=== PATIENT | female | born 1980 | race Caucasian/White ===

== ENCOUNTER 2020-04-15 18:34 | Emergency (ER) | payer OTHER, BC ==
--- NOTE | 2020-04-15 19:48 | EDM.PDOC ---
ED HPI GENERAL MEDICAL PROBLEM - General Chief Complaint: Lower Extremity Injury/Pain Stated Complaint: LT KNEE INJURY Time Seen by Provider: 04/15/20 19:33 Source of Information: Reports: Patient, Significant Other (Boyfriend) History Limitations: Reports: No Limitations - History of Present Illness INITIAL COMMENTS - FREE TEXT/NARRATIVE: Mrs. Sanchez is a 40-year-old woman who now presents to the ED with left knee pain. 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 She abraded both of her hands, but states that they are mild, and do not need to be evaluated. She placed Band-Aids on her hands. She states that she did not initially have left knee pain, but about an hour later, after the adrenaline had worn off, she developed progressively worsening anterolateral left knee pain. She states that she is no longer able to bear weight due to the pain. She states that she has been applying ice to the knee, but has not taken any pain medications. No prior left knee injury. Here in the ED, the patient's initial BP is found to be elevated at 193/103, otherwise, she is hemodynamically stable, afebrile, saturating 98% on room air. Other than today's injuries, the patient denies having a recent fever, chills, sore throat, ear pain, nasal or sinus congestion, cough, dyspnea, chest pain, palpitations, nausea, vomiting, constipation, diarrhea, abdominal pain, urinary symptoms, recent weight gain or weight loss, recent bloody bowel movements or black bowel movements, recent joint aches, headaches, or rashes. The patient does not have a PCP. Her woman's health provider is Kelly Crawford NP. She states that she has already received an influenza vaccine this season. Left Knee Pain Score (Numeric/FACES): 8 - Related Data Allergies Allergy/AdvReac Type Severity Reaction Status Date / Time amoxicillin [From Augmentin] Allergy Hives Verified 04/15/20 19:06 clarithromycin [From Biaxin] Allergy Hives Verified 04/15/20 19:06 clavulanic acid Allergy Hives Verified 04/15/20 19:06 [From Augmentin] ibuprofen [From Advil] Allergy Swelling Verified 04/15/20 19:06 Past Medical History Psychiatric History: Reports: Anxiety, Depression Endocrine/Metabolic History: Reports: Obesity/BMI 30+ - Infectious Disease History Infectious Disease History: Reports: Chicken Pox - Past Surgical History HEENT Surgical History: Reports: Oral Surgery (dental extractions), Tonsillectomy GI Surgical History: Reports: Cholecystectomy (around 1999) Social & Family History - Tobacco Use Tobacco Use Status *Q: Current Every Day Tobacco User Tobacco Use Within Last Twelve Months: Vaping (Nicotine) Years of Tobacco use: 25 Packs/Tins Daily: 0.2 Packs/Tins Daily Comment: Down from 1 ppd Tobacco Use Comment: since 15 yrs old - Caffeine Use Caffeine Use: Reports: Energy Drinks - Alcohol Use Alcohol Use History: Yes Alcohol Use Frequency: Rarely - Recreational Drug Use Recreational Drug Use: Yes Drug Use in Last 12 Months: No Recreational Drug Type: Reports: Marijuana/Hashish (last smoked when 27 yrs old) - Living Situation & Occupation Living situation: Reports: (), with Family 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 ED EXAM, GENERAL - Physical Exam Exam: See Below Exam Limited By: No Limitations General Appearance: Alert, WD/WN, No Apparent Distress Extremities: Other (No visible abnormality to the left knee, when compared to the right, such as swelling, erythema, ecchymosis, or abrasion. Clinically, no joint effusion present. The patient reports pain along the anterolateral aspect of the knee, although she denies tenderness to palpation of that area. She does report, however, pain to PROM of the knee. Neurovascular status of the left lower extremity is intact.) Course - Vital Signs Last Recorded V/S: Last Vital Signs Temp 36.2 C 04/15/20 19:03 Pulse 93 04/15/20 19:03 Resp 18 04/15/20 19:03 BP 193/103 H 04/15/20 19:03 Pulse Ox 98 04/15/20 19:03 - Orders/Labs/Meds Orders: Active Orders 24 hr Category Date Time Status Knee Min 4V Lt [CR] Stat Exams 04/15/20 19:08 Taken DME for Discharge [COMM] Routine Oth 02/20/21 21:21 Ordered DME for Discharge [COMM] Stat Oth 04/15/20 20:37 Ordered Labs: Laboratory Tests 04/15/20 Range/Units 19:37 Urine HCG, Qual Negative (NEGATIVE) Meds: Medications Discontinued Medications Generic Name Dose Route Start Last Admin Trade Name Aaron PRN Reason Stop Dose Admin Acetaminophen 650 mg 04/15/20 21:31 04/15/20 21:42 Tylenol PO 04/15/20 21:32 650 mg NOW ONE Administration Hydrocodone Bitart/Acetaminophen 2 tab 04/15/20 20:35 04/15/20 21:42 [place] 325-5 Mg PO 04/15/20 20:36 Not Given ONETIME ONE - Re-Assessments/Exams Free Text/Narrative Re-Assessment/Exam: 04/15/20 19:46 As above, the patient slipped on snow this afternoon, landing on her left knee. She now has pain with bearing weight. There are no visible abnormalities to the knee, such as swelling, erythema, ecchymosis, or abrasion, and while the patient does not really have tenderness to palpation of the knee, she does have pain to PROM. X-rays of the knee were ordered at triage, but have not yet been taken. The patient declined an offer for pain medication. 04/15/20 20:36 4-view radiographs of the left knee appear to demonstrate a small opacity off the superior aspect of the medial condyle, suggesting an avulsion, however, that is not the area of the patient's pain. The remainder of the knee appears to be grossly normal, with no suggestion of a fracture or dislocation. Formal read per the Radiologist pending. Notified that the patient would like something for pain, therefore I ordered 2 tablets of [place]. Based on the above, the patient may have a ligamentous injury, therefore I will have the nurse place a knee immobilizer. 04/15/20 20:41 X-ray results discussed with the patient and her boyfriend. I will have her follow-up with Dr. Melendrez this week. I will provide her a note for work. 04/15/20 21:33 Notified that the patient desired crutches. My colleague ordered them for her. Also notified that the patient does not want to take [place], as it causes nausea, and did not want to take ibuprofen, as it upsets her stomach, therefore I ordered Tylenol. Departure - Departure Time of Disposition: 20:42 Disposition: Home, Self-Care 01 Condition: Good Clinical Impression: Internal derangement of left knee - Discharge Information *PRESCRIPTION DRUG MONITORING PROGRAM REVIEWED*: Not Applicable *COPY OF PRESCRIPTION DRUG MONITORING REPORT IN PATIENT EL: Not Applicable Referrals: Kelly Crawford NP [Primary Care Provider] - Josh Melendrez MD [Physician] - Forms: ED Department Discharge, ED Return to Work/School Form Additional Instructions: You were seen in the emergency room after slipping on snow and falling onto your left knee this afternoon. Work-up in the ER included x-rays of your left knee, which found no broken bones or dislocations. Based on your history, physical exam, and ER x-rays, you most likely have an internal derangement of your left knee, indicating an injured tendon or ligament. For this reason, you have been placed into a knee immobilizer. Apply the knee immobilizer over your pants in the morning, and remove it at bedtime. Be very careful going up and down stairs, since he will not be able to bend your left knee. We recommend that you take [id number] acetaminophen (Tylenol), 650 mg every 4 to 6 hours, as needed for discomfort. We recommend that you elevate your left leg and apply an ice pack to the knee area, right over the knee immobilizer, for the next 2 to 3 days, to help minimize swelling. Please follow-up with the Orthopedic Surgeon Dr. Josh Melendrez. Call his office Friday to make an appointment. If any other problems, please do not hesitate to return to the ER. Sepsis Event Note (ED) - Evaluation Sepsis Screening Result: No Definite Risk - Focused Exam Vital Signs: Vital Signs Temp Pulse Resp BP Pulse Ox 04/15/20 19:03 36.2 C 93 18 193/103 H 98 - My Orders Last 24 Hours: My Active Orders 04/15/20 20:37 DME for Discharge [COMM] Stat - Assessment/Plan Last 24 Hours: My Active Orders 04/15/20 20:37 DME for Discharge [COMM] Stat
[2020-04-15] MEDS ORDERED: Acetaminophen/HYDROcodone 325-5 MG Tab PO ONE (20:35)
[2020-04-15] MEDS ORDERED: Acetaminophen 325 MG Tab PO ONE (21:31)
--- NOTE | 2020-04-16 11:32 | CR ---
Left knee: 4 views of the left knee were obtained. Comparison: No prior knee exam is available. Small bony density is seen off the superior medial epicondyle of the femur compatible with old injury. No joint effusion is seen. Medial joint is minimally narrowed as compared to the lateral joint. No additional abnormality is appreciated. Impression: 1. Slight medial joint space narrowing. 2. Small bony density off the upper medial femoral epicondyle compatible with old injury. Diagnostic code #2
== END 2020-04-15 21:45 | disposition home or self-care (01) ==
LOC: JD.ED 18:34
DX: M23.92 Unspecified internal derangement of left knee (principal); S89.92XA Unspecified injury of left lower leg, initial encounter; Z72.0 Tobacco use; Z88.0 Allergy status to penicillin; Z88.1 Allergy status to other antibiotic agents; Z88.6 Allergy status to analgesic agent; W00.0XXA Fall on same level due to ice and snow, initial encounter
CPT/HCPCS: 73564; 81025; 99283; A9270

== ENCOUNTER 2020-07-15 23:32 | Emergency (ER) | payer BC, OTHER ==
[2020-07-16] MEDS ORDERED: Sodium Chloride 0.9% 10 ML Syringe FLUSH PRN (00:08)
--- NOTE | 2020-07-16 00:09 | EDM.PDOC ---
ED HPI GENERAL MEDICAL PROBLEM - General Chief Complaint: Cardiovascular Problem Stated Complaint: BP OVER 200 CHEST PAINS Time Seen by Provider: 07/16/20 00:07 Source of Information: Reports: Patient History Limitations: Reports: No Limitations - History of Present Illness INITIAL COMMENTS - FREE TEXT/NARRATIVE: 40-year-old female presents to the ED with a markedly elevated blood pressure. It was assessed due to persistence of a diffuse temporal headache. She is under a great deal of stress at this point time going through divorce etc. She is not sleeping very well either. She reports no history of hypertension during which was 12 years ago. No preeclampsia or eclampsia. She is been told that her blood pressure has been high in the clinic usually in the 150s on the systolic side and 85 diastolically. At the time of presentation today it is markedly elevated at 222 over 115. Current medications include citalopram 40 mg daily and lorazepam 0.5 to 1 mg 3 times daily as needed. She is also on Cryselle 28 control pill which may not be the wisest thing to be on with hypertension. Onset: Today, Other (Elevated blood pressure markedly elevated today. She believes is probably been elevated for the last week or more due to the stress he is under.) Duration: Day(s):, Getting Worse Location: Reports: Generalized (Elevated high blood pressure.), Other (Bitemporal headache.) Quality: Reports: Ache (Headache) Severity: Moderate (bitemporal) Improves with: Reports: None Worsens with: Reports: None Context: Denies: Activity, Exercise, Lifting, Sick Contact, Trauma, Other Associated Symptoms: Denies: No Other Symptoms, Confusion, Chest Pain, Cough, cough w sputum, Diaphoresis, Fever/Chills, Headaches, Loss of Appetite, Malaise, Nausea/Vomiting, Seizure, Shortness of Breath, Syncope, Weakness Treatments MOLD CHIPPER: Reports: Acetaminophen, NSAIDS (Motrin as needed) - Related Data Allergies Allergy/AdvReac Type Severity Reaction Status Date / Time amoxicillin [From Augmentin] Allergy Severe Hives Verified 07/15/20 23:43 clarithromycin [From Biaxin] Allergy Severe Hives Verified 07/15/20 23:43 clavulanic acid Allergy Severe Hives Verified 07/15/20 23:43 [From Augmentin] ibuprofen [From Advil] Allergy Severe Swelling Verified 05/22/21 23:43 Home Meds: Home Meds Citalopram Hydrobromide [Celexa] 40 mg PO DAILY 07/15/20 [History] LORazepam [Ativan] 0.5 - 1 mg PO DAILY PRN 07/15/20 [History] norgestrel-ethinyl estradioL [Cryselle-28 Tablet] 1 tab PO DAILY 07/15/20 [History] Valsartan 320 mg PO DAILY #30 tablet 07/16/20 [Rx] Past Medical History Psychiatric History: Reports: Anxiety, Depression Endocrine/Metabolic History: Reports: Obesity/BMI 30+ - Infectious Disease History Infectious Disease History: Reports: Chicken Pox - Past Surgical History HEENT Surgical History: Reports: Oral Surgery, Tonsillectomy GI Surgical History: Reports: Cholecystectomy Social & Family History - Tobacco Use Tobacco Use Status *Q: Current Every Day Tobacco User Years of Tobacco use: 2 Packs/Tins Daily: 0.4 - Caffeine Use Caffeine Use: Reports: Coffee, Energy Drinks - Recreational Drug Use Recreational Drug Use: No - Living Situation & Occupation Living situation: Reports: (--currently going through a divorce at this time), with Family 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 Denies: Fever, Chills, Weight Loss HEENT: Reports: No Symptoms Respiratory: Reports: No Symptoms Cardiovascular: Reports: Blood Pressure Problem (Has been told her blood p ressure has been in the 150s on several visits to the doctor in the past year or 2. She is never been placed on medication for hypertension.) Endocrine: Reports: Fatigue GI/Abdominal: Reports: No Symptoms : Reports: No Symptoms Musculoskeletal: Reports: No Symptoms Skin: Reports: No Symptoms Neurological: Reports: Dizziness, Headache Psychiatric: Reports: Anxiety, Other (Insomnia) Hematologic/Lymphatic: Reports: No Symptoms Immunologic: Reports: No Symptoms ED EXAM, GENERAL - Physical Exam Exam: See Below Exam Limited By: No Limitations General Appearance: Alert, WD/WN, No Apparent Distress, Other (Temperature is 35.9 degrees. Heart rate was 77 and sinus respiratory is 18 with O2 sats of 100% room air. BP 222/115 initially. This Did come down to 180/110. This was over a period of 40 minutes.) Eye Exam: Bilateral Eye: A-V [place] (Mild bilaterally), Normal Inspection (No scleral icterus or blepharal pallor.), Periorbital Changes Head: Atraumatic, Normocephalic Neck: Normal Inspection, Supple, Non-Tender, Full Range of Motion. No: Carotid Bruit, Lymphadenopathy (L), Lymphadenopathy (R) Respiratory/Chest: No Respiratory Distress, Lungs Clear, Normal Breath Sounds, No Accessory Muscle Use Cardiovascular: Normal Peripheral Pulses, Regular Rate, Rhythm, No Edema, No Gallop, No Murmur, No Rub Peripheral Pulses: 2+: Posterior Tibial (L), Posterior Tibial (R), Dorsalis Pedis (L), Dorsalis Pedis (R), 3+: Carotid (L), Carotid (R) GI/Abdominal: Normal Bowel Sounds, Soft, Non-Tender, No Organomegaly, No Abnormal Bruit, No Mass, Pelvis Stable Back Exam: Normal Inspection, Full Range of Motion. No: CVA Tenderness (L), CVA Tenderness (R) Extremities: Normal Inspection, Normal Range of Motion, Non-Tender, No Pedal Edema Neurological: Alert, Oriented, CN II-XII Intact, Normal Cognition Psychiatric: Normal Affect, Normal Mood Skin Exam: Warm, Intact, Normal Color, No Rash #1 Interpretation EKG Date: 07/16/20 Time: 00:08 Rhythm: NSR Rate (Beats/Min): 72 [place]: LAD-Left [place] Deviation (-32 degrees) P-Wave: Present QRS: Other (Poor R wave progression throughout with delayed transition. Tall R wave in lead I is suggestive of left ventricular hypertrophy pattern.) ST-T: Normal QT: Prolonged (Minimally prolonged) EKG Interpretation Comments: Abnormal ECG Course - Vital Signs Last Recorded V/S: Last Vital Signs Temp 35.9 C L 07/15/20 23:40 Pulse 77 07/15/20 23:40 Resp 18 07/15/20 23:40 BP 162/105 H 07/16/20 01:21 Pulse Ox 100 07/15/20 23:40 - Orders/Labs/Meds Orders: Active Orders 24 hr Category Date Time Status EKG Documentation Completion [RC] ASDIRECTED Care 07/16/20 00:03 Active Peripheral IV Care [RC] . DIRECTED Care 07/16/20 00:09 Active Chest 1V Frontal [CR] Stat Exams 07/16/20 00:03 Taken Sodium Chloride 0.9% [Saline Flush] Med 07/16/20 00:08 Active 10 ml FLUSH ASDIRECTED PRN Peripheral IV Insertion Adult [OM.PC] Stat Oth 07/16/20 00:09 Ordered EKG 12 Lead [EK] Stat Ther 07/16/20 00:03 Ordered Medication Orders Sodium Chloride (Sodium Chloride 0.9% 10 Ml Syringe) 10 ml FLUSH ASDIRECTED PRN PRN Reason: Keep Vein Open Last Admin: 07/16/20 01:13 Dose: 10 ml Documented by: JERROD Labs: Laboratory Tests 07/16/20 07/16/20 07/16/20 Range/Units 00:15 00:15 01:00 WBC 9.58 (3.98-10.04) K/mm3 RBC 4.76 (3.98-5.22) M/mm3 Hgb 13.6 (11.2-15.7) gm/dl Hct 41.5 (34.1-44.9) % MCV 87.2 (79.4-94.8) fl MCH 28.6 (25.6-32.2) pg MCHC 32.8 (32.2-35.5) g/dl RDW Std Deviation 41.4 (36.4-46.3) fL Plt Count 302 (182-369) K/mm3 MPV 9.2 L (9.4-12.3) fl Neut % (Auto) 57.4 (34.0-71.1) % Lymph % (Auto) 35.0 (19.3-51.7) % [place] % (Auto) 6.3 (4.7-12.5) % Eos % (Auto) 0.8 (0.7-5.8) Baso % (Auto) 0.3 (0.1-1.2) % Neut # (Auto) 5.50 (1.56-6.13) K/mm3 Lymph # (Auto) 3.35 (1.18-3.74) K/mm3 [place] # (Auto) 0.60 H (0.24-0.36) K/mm3 Eos # (Auto) 0.08 (0.04-0.36) K/mm3 Baso # (Auto) 0.03 (0.01-0.08) K/mm3 Sodium 140 (136-145) mEq/L Potassium 3.6 (3.5-5.1) mEq/L Chloride 101 (98-107) mEq/L Carbon Dioxide 24 (21-32) mEq/L Anion Gap 18.6 H (5-15) BUN 12 (7-18) mg/dL Creatinine 0.7 (0.55-1.02) mg/dL Est Cr Clr Drug Dosing TNP Estimated GFR (MDRD) > 60 (>60) mL/min BUN/Creatinine Ratio 17.1 (14-18) Glucose 98 (70-99) mg/dL Calcium 8.7 (8.5-10.1) mg/dL Magnesium 1.9 (1.8-2.4) mg/dL Total Bilirubin 0.2 (0.2-1.0) mg/dL AST 15 (15-37) U/L ALT 26 (14-59) U/L Alkaline Phosphatase 67 (46-116) U/L Troponin I < 0.017 (0.00-0.056) ng/mL Total Protein 7.4 (6.4-8.2) g/dl Albumin 3.6 (3.4-5.0) g/dl Globulin 3.8 gm/dL Albumin/Globulin Ratio 1.0 (1-2) Urine Color Yellow (Yellow) Urine Appearance Clear (Clear) Urine pH 7.0 (5.0-8.0) Ur Specific [place] 1.020 (1.005-1.030) Urine Protein Negative (Negative) Urine Glucose (UA) Negative (Negative) Urine Ketones Negative (Negative) Urine Occult Blood 2+ H (Negative) Urine Nitrite Negative (Negative) Urine Bilirubin Negative (Negative) Urine Urobilinogen 0.2 (0.2-1.0) Ur Leukocyte Esterase Negative (Negative) Urine RBC 5-10 H (0-5) /hpf Urine WBC 0-5 (0-5) /hpf Ur Squamous Epith Cells 0-5 (0-5) /hpf Urine Bacteria Rare (FEW) /hpf Urine Mucus Not seen (FEW) /hpf Meds: Medications Generic Name Dose Route Start Last Admin Trade Name Freq PRN Reason Stop Dose Admin Sodium Chloride 10 ml 07/16/20 00:08 07/16/20 01:13 Sodium Chloride 0.9% 10 Ml Syringe FLUSH 10 ml ASDIRECTED PRN Administration Keep Vein Open Discontinued Medications Generic Name Dose Route Start Last Admin Trade Name Aaron PRN Reason Stop Dose Admin Amlodipine Besylate 10 mg 07/16/20 00:34 07/16/20 01:14 Amlodipine 10 Mg Tab PO 07/16/20 00:35 10 mg ONETIME ONE Administration Hydralazine HCl 10 mg 07/16/20 01:54 07/16/20 01:59 Hydralazine 20 Mg/Ml Sdv IVPUSH 07/16/20 01:55 10 mg ONETIME ONE Administration Labetalol HCl 20 mg 07/16/20 00:30 07/16/20 01:12 Labetalol 100 Mg/20 Ml Mdv IVPUSH 07/16/20 00:31 20 mg ONETIME ONE Administration Protocol Losartan Potassium 100 mg 07/16/20 00:31 07/16/20 01:13 Losartan 100 Mg Tab PO 07/16/20 00:32 100 mg ONETIME ONE Administration - Radiology Interpretation Free Text/Narrative:: 40-year-old female presents to the ED with markedly elevated blood pressure. She has been told that she has mild systolic hypertension in the past visits to the doctor with usually it being around 150. Diastolics have usually been around 85. Due to persistent headache in bitemporal area of her head she had blood pressure checked today and found it to be markedly elevated. It is 222/115 at the initial visit to the ED. It did come down over period of 45 minutes of observation to 180/110. Her ECGs suggest left ventricular hypertrophy pattern. The chest leads show poor progression of the ST segment with early R wave transition in V2 suggestive of possible septal hypertrophy pattern. Decision made to treat this lady with intravenous medication Lopressor 20 mg IV. I am also going to give her oral amlodipine 5 mg by mouth and Cozaar 100 mg by mouth since we do not have valsartan in our formulary. Routine labs to be collected - Re-Assessments/Exams Free Text/Narrative Re-Assessment/Exam: 07/16/20 01:00: White count is 9.58 with differential of 57.4% neutrophils on the auto differential. Hemoglobin is 13.6 with hematocrit of 41.5 platelet count 302,000. Sodium is 140 with a potassium of 3.6. Chloride 101 with a bicarb of 24. Anion gap is elevated at 18.6. BUN is 12 with a creatinine of 0.7 and a GFR greater than 60 normal. Glucose is 98 calcium is 8.7 magnesium is 1.9 liver function is normal troponin I is less than 0.017. Total protein 7.4 with an albumin fraction of 3.6. Urinalysis shows 2+ occult blood negative protein urea no signs of infection 07/16/20 01:28 nurses had difficulty establishing an IV and therefore she has just received medication intravenously within the last 10 minutes. 07/16/20 01:55 blood pressure remains elevated 170/104. I am therefore going to give her hydralazine 10 mg IV. Heart rate is 70 and sinus. O2 sats are 98% on room air 07/16/20 02:20 blood pressure is come down to 169/91 15 minutes after receiving hydralazine 10 mg IV. Patient will be discharged to home. The plan will be to start her on valsartan 320 mg once daily and every morning. She will build up her prescription up at noon today from [facility] and should take her first tablet today. She is to follow-up with her primary care provider within the next 2 to 3 weeks time for blood pressure review and I suggested picking up a blood pressure monitoring machine for herself at home. Departure - Departure Time of Disposition: 02:21 Disposition: Home, Self-Care 01 Reason for Transfer *Q: Other Condition: Fair Clinical Impression: Essential hypertension Prescriptions: Valsartan 320 mg PO DAILY #30 tablet Referrals: Kelly Crawford MEDICAL SERVICES ASSISTANT [Primary Care Provider] - Forms: ED Department Discharge Additional Instructions: Evaluation in the emergency room tonight in regards to markedly elevated blood pressure. You recognize that you were under good deal of duress and stress in regards to divorce at this time. Blood pressure initially was 222/115 and was difficult to bring under control even with medication Lopressor 20 mg given intravenously. He also received oral medications Cozaar 100 mg and amlodipine 5 mg which will take at few hours to start to kick in but will start to lower blood pressure over the next 6 to 8 hours. 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 The only drugstore open today is [facility] pharmacy across from [facility]. It is open from 12 to 4 PM on Friday. Take valsartan 320 mg once daily in the morning and then I would suggest purchasing a blood pressure cuff or monitor for home use so you can check on your blood pressure intermittently. Valsartan will work on a daily basis and slowly bring blood pressure under control over period of a month and sometimes even up to 2 months. Follow-up with personal care physician for refill. Sepsis Event Note (ED) - Evaluation Sepsis Screening Result: No Definite Risk - Focused Exam Vital Signs: Vital Signs Temp Pulse Resp BP BP Pulse Ox 07/16/20 01:21 162/105 H 07/16/20 01:14 194/118 H 07/16/20 01:13 194/118 H 07/15/20 23:40 35.9 C L 77 18 222/115 H 100 - My Orders Last 24 Hours: My Active Orders 07/16/20 00:03 EKG Documentation Completion [RC] ASDIRECTED Chest 1V Frontal [CR] Stat EKG 12 Lead [EK] Stat 07/16/20 00:08 Sodium Chloride 0.9% [Saline Flush] 10 ml FLUSH ASDIRECTED PRN 07/16/20 00:09 Peripheral IV Care [RC] . DIRECTED Peripheral IV Insertion Adult [OM.PC] Stat - Assessment/Plan Last 24 Hours: My Active Orders 07/16/20 00:03 EKG Documentation Completion [RC] ASDIRECTED Chest 1V Frontal [CR] Stat EKG 12 Lead [EK] Stat 07/16/20 00:08 Sodium Chloride 0.9% [Saline Flush] 10 ml FLUSH ASDIRECTED PRN 07/16/20 00:09 Peripheral IV Care [RC] . DIRECTED Peripheral IV Insertion Adult [OM.PC] Stat
[2020-07-16] MEDS ORDERED: Labetalol 100 MG/20 ML MDV IVPUSH ONE (00:30)
[2020-07-16] MEDS ORDERED: Losartan 100 MG Tab PO ONE (00:31)
[2020-07-16] MEDS ORDERED: amLODIPine 10 MG Tab PO ONE (00:34)
[2020-07-16] MEDS ORDERED: hydrALAZINE 20 MG/ML SDV IVPUSH ONE (01:54)
--- NOTE | 2020-07-17 13:07 | CR ---
Chest: Portable view of the chest was obtained. Comparison: No prior chest imaging is available. Heart size and mediastinum are within normal limits. Lungs are clear with no acute parenchymal change. No pneumothorax is seen. No acute osseous abnormality is appreciated. Impression: 1. Nothing acute is appreciated on portable chest x-ray. Diagnostic code #1
== END 2020-07-16 02:25 | disposition home or self-care (01) ==
LOC: JD.ED 23:32
DX: I10 Essential (primary) hypertension (principal); E66.9 Obesity, unspecified; Z72.0 Tobacco use; Z88.0 Allergy status to penicillin; Z88.8 Allergy status to other drugs, medicaments and biological substances; Z68.30 Body mass index [BMI] 30.0-30.9, adult
CPT/HCPCS: 36415; 71045; 80053; 81001; 83735; 84484; 85025; 93005; 96374; 96375; 99284; A9270; J0360; J3490; 93010

== ENCOUNTER 2021-09-03 18:13 | Emergency (ER) | payer BC ==
[2021-09-03] MEDS ORDERED: Lactated Ringers 1,000 ML IV ONE (20:03)
[2021-09-03] MEDS ORDERED: Ondansetron 4 MG/2 ML SDV IVPUSH ONE (20:03)
[2021-09-03] MEDS ORDERED: diphenhydrAMINE 50 MG/ML SDV IVPUSH ONE (20:06)
[2021-09-03] MEDS ORDERED: LORazepam 2 MG/ML SDV IVPUSH ONE (22:18)
[2021-09-03] MEDS ORDERED: Metoclopramide 10 MG/2 ML SDV IVPUSH ONE (22:18)
== END 2021-09-03 23:55 | disposition home or self-care (01) ==
LOC: JD.ED 18:13
DX: H81.10 Benign paroxysmal vertigo, unspecified ear (principal); E66.9 Obesity, unspecified; Z68.41 Body mass index [BMI] 40.0-44.9, adult; Z88.0 Allergy status to penicillin; Z88.8 Allergy status to other drugs, medicaments and biological substances; Z28.310 Unvaccinated for COVID-19
CPT/HCPCS: 36415; 80053; 84484; 85025; 93005; 96361; 96374; 96375; 99283; J1200; J2060; J2405; J2765; J7120

== ENCOUNTER 2023-12-04 11:02 | Inpatient (IN) | payer OTHER ==
[2023-12-04 11:43] LABS: BASOPHILS PERCENT AUTO 0.3 % (0.0-1.0); EOSINOPHILS ABSOLUTE AUTO 0.1 K/mm3 (0.0-0.4); EOSINOPHILS PERCENT AUTO 0.6 % (0.0-6.0); HEMATOCRIT 47.8 % (37.0-47.0); HEMOGLOBIN 16.2 gm/dl (12.0-16.0); IMMATURE GRAN ABSOLUTE AUTO 0.07 K/mm3 (0.00-0.05); IMMATURE GRAN PERCENT AUTO 0.7 % (0.0-0.4); LYMPHOCYTES ABSOLUTE AUTO 1.7 K/mm3 (1.0-4.8); LYMPHOCYTES PERCENT AUTO 17.6 % (24.0-44.0); MEAN CORPUSCULAR HEMOGLOBIN 29.1 pg (28.0-32.0); MEAN CORPUSCULAR HGB CONC 33.9 g/dl (32.0-36.0); MEAN PLATELET VOLUME 8.7 fl (9.4-12.3); MONOCYTES ABSOLUTE AUTO 1.3 K/mm3 (0.0-0.8); MONOCYTES PERCENT AUTO 13.1 % (0.0-8.0); NEUTROPHILS ABSOLUTE AUTO 6.5 K/mm3 (1.8-7.7); NEUTROPHILS PERCENT AUTO 67.7 % (41.0-71.0); PLATELET COUNT,PLT 418 K/mm3 (150-400); RED BLOOD CELL COUNT 5.56 M/mm3 (4.10-5.30); WHITE BLOOD CELL COUNT,WBC 9.56 K/mm3 (3.9-11.3)
[2023-12-04] MEDS: Sodium Chloride 0.9% 1,000 ML IV ONE (11:53)
[2023-12-04] MEDS: Sodium Chloride 0.9% 10 ML Syringe FLUSH PRN (12:10)
[2023-12-04] MEDS: Iopamidol 612 MG/ML 100 ML Bottle IVPUSH ONE (12:11)
[2023-12-04 12:13] LABS: A/G RATIO 1.1 (1-2); ALANINE AMINOTRANSFERASE,ALT 123 U/L (14-59); ALBUMIN 4.1 g/dl (3.4-5.0); ALKALINE PHOSPHATASE 285 U/L (46-116); ANION GAP 23.5 (5-15); ASPARTATE AMNIOTRANSFERASE,AST 184 U/L (15-37); BILIRUBIN TOTAL 2.1 mg/dL (0.2-1.0); BLOOD UREA NITROGEN,BUN 33 mg/dL (7-18); CALCIUM 9.1 mg/dL (8.5-10.1); CARBON DIOXIDE,CO2 19 mEq/L (21-32); CHLORIDE,CL 97 mEq/L (98-107); CREATININE 4.1 mg/dL (0.55-1.02); ESTIMATED GFR 13 mL/min (>60); GLUCOSE RANDOM 142 mg/dL (70-99); POTASSIUM,K 3.5 mEq/L (3.5-5.1); PROTEIN TOTAL,TP 7.9 g/dl (6.4-8.2); SODIUM,NA 136 mEq/L (136-145)
[2023-12-04 12:29] LABS: C-REACTIVE PROTEIN 1.87 mg/dL (<0.30)
[2023-12-04] MEDS: Lactated Ringers 1,000 ML IV ONE ×2 (13:11→14:32)
[2023-12-04 14:11] LABS: APPEARANCE,URINE SLT CLOUDY (Clear); BILIRUBIN,URINE 2+ (Negative); COLOR,URINE DARK YELLOW (Yellow); GLUCOSE,URINE NEGATIVE (Negative); KETONES,URINE TRACE (Negative); LEUKOCYTE ESTERASE,URINE NEGATIVE (Negative); NITRITE,URINE NEGATIVE (Negative); OCCULT BLOOD,URINE 1+ (Negative); PH,URINE 5.5 (5.0-8.0); PROTEIN,URINE 2+ (Negative); UROBILINOGEN,URINE 0.2 (0.2-1.0)
[2023-12-04 14:27] LABS: BACTERIA,URINE MODERATE /hpf (FEW); MUCUS,URINE MODERATE /hpf (FEW)
[2023-12-04] MEDS ORDERED: Acetaminophen 325 MG Tab PO PRN (14:37)
[2023-12-04] MEDS ORDERED: oxyCODONE 5 MG Tab PO PRN (14:37)
[2023-12-04] MEDS ORDERED: Morphine 2 MG/ML SYRINGE IVPUSH PRN (14:37)
[2023-12-04] MEDS: Loperamide 2 MG Cap PO PRN (21:01)
[2023-12-04] MEDS: Ondansetron 4 MG/2 ML SDV IV PRN (21:05)
[2023-12-05] MEDS: Aluminum Hydroxide/Magnesium Hydroxide/Simethicone Susp 30 ML Cup PO PRN (01:20)
[2023-12-05 05:40] LABS: BASOPHILS PERCENT AUTO 0.5 % (0.0-1.0); EOSINOPHILS ABSOLUTE AUTO 0.1 K/mm3 (0.0-0.4); EOSINOPHILS PERCENT AUTO 1.2 % (0.0-6.0); HEMATOCRIT 37.2 % (37.0-47.0); HEMOGLOBIN 12.7 gm/dl (12.0-16.0); IMMATURE GRAN ABSOLUTE AUTO 0.04 K/mm3 (0.00-0.05); IMMATURE GRAN PERCENT AUTO 0.7 % (0.0-0.4); LYMPHOCYTES ABSOLUTE AUTO 1.8 K/mm3 (1.0-4.8); LYMPHOCYTES PERCENT AUTO 29.4 % (24.0-44.0); MEAN CORPUSCULAR HEMOGLOBIN 29.5 pg (28.0-32.0); MEAN CORPUSCULAR HGB CONC 34.1 g/dl (32.0-36.0); MEAN CORPUSCULAR VOLUME 86.5 fl (83.0-99.0); MEAN PLATELET VOLUME 8.8 fl (9.4-12.3); MONOCYTES ABSOLUTE AUTO 0.7 K/mm3 (0.0-0.8); MONOCYTES PERCENT AUTO 11.7 % (0.0-8.0); NEUTROPHILS ABSOLUTE AUTO 3.4 K/mm3 (1.8-7.7); NEUTROPHILS PERCENT AUTO 56.5 % (41.0-71.0); PLATELET COUNT,PLT 255 K/mm3 (150-400); WHITE BLOOD CELL COUNT,WBC 5.96 K/mm3 (3.9-11.3)
[2023-12-05 06:11] LABS: BILIRUBIN TOTAL 0.9 mg/dL (0.2-1.0); BUN/CREATININE RATIO 16.4 (14-18); C-REACTIVE PROTEIN 1.78 mg/dL (<0.30); CALCIUM 8.1 mg/dL (8.5-10.1); EST CRCL DRUG DOSING (CG) 51.43 mL/min; MAGNESIUM 1.9 mg/dL (1.8-2.4); PROTEIN TOTAL,TP 6.1 g/dl (6.4-8.2)
[2023-12-05 06:23] LABS: CREATININE 1.4 mg/dL (0.55-1.02)
[2023-12-05] MEDS ORDERED: Magnesium Sulfate (4.06 MEQ/ML) 5 GM/10 ML SDV IV ONE (08:44)
[2023-12-05] MEDS: buPROPion 150 MG Tab.ER PO SCH (10:25)
[2023-12-05] MEDS: Pantoprazole 40 MG Tab.CR PO SCH (10:25)
[2023-12-05] MEDS: FLUoxetine 20 MG Cap PO SCH (10:25)
[2023-12-05] MEDS: Potassium Chloride 10 MEQ in Premix Bag 1 BAG IV SCH (11:24)
[2023-12-05] MEDS: Sodium Chloride 0.9% 1,000 ML IV SCH (12:17)
[2023-12-05] MEDS: metroNIDAZOLE 250 MG Tab PO SCH (14:01)
[2023-12-06 05:46] LABS: BASOPHILS PERCENT AUTO 0.6 % (0.0-1.0); EOSINOPHILS PERCENT AUTO 0.6 % (0.0-6.0); HEMOGLOBIN 12.7 gm/dl (12.0-16.0); IMMATURE GRAN ABSOLUTE AUTO 0.04 K/mm3 (0.00-0.05); IMMATURE GRAN PERCENT AUTO 0.6 % (0.0-0.4); LYMPHOCYTES ABSOLUTE AUTO 2.3 K/mm3 (1.0-4.8); LYMPHOCYTES PERCENT AUTO 34.9 % (24.0-44.0); MEAN CORPUSCULAR HEMOGLOBIN 28.9 pg (28.0-32.0); MEAN CORPUSCULAR HGB CONC 33.4 g/dl (32.0-36.0); MEAN CORPUSCULAR VOLUME 86.6 fl (83.0-99.0); MEAN PLATELET VOLUME 8.8 fl (9.4-12.3); MONOCYTES ABSOLUTE AUTO 0.5 K/mm3 (0.0-0.8); MONOCYTES PERCENT AUTO 8.2 % (0.0-8.0); NEUTROPHILS ABSOLUTE AUTO 3.6 K/mm3 (1.8-7.7); NEUTROPHILS PERCENT AUTO 55.1 % (41.0-71.0); PLATELET COUNT,PLT 257 K/mm3 (150-400); RED BLOOD CELL COUNT 4.39 M/mm3 (4.10-5.30); WHITE BLOOD CELL COUNT,WBC 6.57 K/mm3 (3.9-11.3)
[2023-12-06 05:56] LABS: ALBUMIN 3.2 g/dl (3.4-5.0); ANION GAP 13.2 (5-15); BILIRUBIN TOTAL 0.6 mg/dL (0.2-1.0); C-REACTIVE PROTEIN 1.17 mg/dL (<0.30); CALCIUM 8.7 mg/dL (8.5-10.1); MAGNESIUM 2.1 mg/dL (1.8-2.4); POTASSIUM,K 3.2 mEq/L (3.5-5.1); PROTEIN TOTAL,TP 6.4 g/dl (6.4-8.2)
[2023-12-06] MEDS: Potassium Chloride 20 MEQ Tab.ER PO ONE (08:28)
== END 2023-12-06 11:05 | disposition home or self-care (01) | DRG 683 ==
LOC: JD.ED 11:02 → JD.MS 13:38
PROVIDERS: ADMIT Internal Medicine; ATTEND Student in an Organized Health Care Education/Training Program
DX: N17.9 Acute kidney failure, unspecified (principal); Z68.42 Body mass index [BMI] 45.0-49.9, adult; I95.9 Hypotension, unspecified; E66.9 Obesity, unspecified; F41.9 Anxiety disorder, unspecified; F32.A Depression, unspecified; E86.0 Dehydration; I10 Essential (primary) hypertension; E87.6 Hypokalemia; R19.7 Diarrhea, unspecified; R74.01 Elevation of levels of liver transaminase levels; Z88.1 Allergy status to other antibiotic agents; Z88.6 Allergy status to analgesic agent; Z90.49 Acquired absence of other specified parts of digestive tract; Z90.89 Acquired absence of other organs; Z87.891 Personal history of nicotine dependence; Z79.899 Other long term (current) drug therapy; Z98.890 Other specified postprocedural states
CPT/HCPCS: 36415; 74177; 74177-26; 80053; 81001; 83690; 83735; 84100; 84443; 84703; 85025; 86140; 87045; 87046; 87328; 87329; 87493; 87899; 93005; A9270-GY; J2405; J3475; J3480; J3490; J7030; J7120; Q9967